=== PATIENT | male | born 1960 | race Caucasian/White ===

== ENCOUNTER 2016-08-23 15:12 | Observation (INO) | payer OTHER ==
[~2016-08-23] VITALS: Ht 165.1 cm; Wt 88.6 kg
[2016-08-23 16:26] LABS: HEMOGLOBIN 15.5 gm/dl (14.0-17.5); RED BLOOD COUNT 5.08 M/UL (4.20-5.50)
[2016-08-23 17:09] LABS: BUN/CREATININE RATIO 9 (0-10)
[2016-08-24 05:39] LABS: HEMOGLOBIN 15.5 gm/dl (14.0-17.5); RED BLOOD COUNT 5.12 M/UL (4.20-5.50); WHITE BLOOD COUNT 9.6 K/UL (4.5-11.0)
[2016-08-24 06:07] LABS: BUN/CREATININE RATIO 11 (0-10)
[2016-08-24] MEDS ORDERED: ASPIR 8181 MG PO (13:22)
[2016-08-24] MEDS ORDERED: LIPITOR TAB 2020 MG PO (13:23)
[2016-08-24] MEDS ORDERED: LISINOPRIL20 MG PO (13:23)
[2016-08-24] MEDS ORDERED: LOPRESSOR50 MG PO (13:24)
== END 2016-08-24 14:05 | disposition home or self-care (01) ==
LOC: ER1 15:12 → ZEROF 17:30 → M/S 20:29
PROVIDERS: Emergency Medicine; ADMIT Internal Medicine Infectious Disease
DX: I10 Essential (primary) hypertension (principal); E78.5 Hyperlipidemia, unspecified; I25.10 Atherosclerotic heart disease of native coronary artery without angina pectoris; E11.9 Type 2 diabetes mellitus without complications; J44.9 Chronic obstructive pulmonary disease, unspecified; E87.6 Hypokalemia; Z98.61 Coronary angioplasty status; Z79.82 Long term (current) use of aspirin; Z79.899 Other long term (current) drug therapy; Z98.52 Vasectomy status; Z87.891 Personal history of nicotine dependence
CPT/HCPCS: ECHO; 36415; 70450; 71010; 80048; 80053; 80061; 82550; 82553; 83036; 83735; 83874; 84439; 84443; 84484; 85025; 87040; 93005; 93306; 96374; 96375; 99285; G0378; J0360; J1956